=== PATIENT | male | born 1985 | race African-American/Black ===

== ENCOUNTER 2020-04-17 12:18 | Outpatient (CLI) | payer OTHER ==
[~2020-04-17] VITALS: Ht 188 cm; Wt 110.7 kg
[2020-04-17 14:54] VITALS: BP 123/68
[2020-04-17] MEDS ORDERED: MULTIVITAMINS1 EAC2 ORAL (14:54)
--- NOTE | 2020-04-17 17:30 | Consultation ---
DATE OF CONSULTATION: 04/17/2020 CONSULTING PHYSICIAN: Guillermo Montemayor MD. CHIEF COMPLAINT: Abdominal bloating, abdominal pain. HISTORY OF PRESENT ILLNESS: This is a 34-year-old male without any significant past medical history except for BPH and penile stenosis requiring urethral dilatation presented with complaint of abdominal pain, nonspecific, started on the left side, sometimes goes to the right side especially with bloating, gas, and some minimum constipation. Patient used to go to the bathroom twice a day, now going every other day. Also complained of 10 pounds of weight loss, but he says he changed his diet. He does not have much of appetite and his eating pattern has changed. He also has history of GERD, which is resolving, history of hemorrhoidal problems, which has resolved. PAST MEDICAL HISTORY: 1. History of BPH. 2. Urethral stricture requiring a urethral dilatation. 3. GERD. 4. Constipation. 5. Hemorrhoids. PAST SURGICAL HISTORY: Urethral dilatation. MEDICATIONS: Multivitamin. FAMILY HISTORY: Father had positive cancer. SOCIAL HISTORY: Patient drinks alcohol socially. Smokes occasionally. Denies any IV drug abuse. ALLERGIES: No known drug allergies. REVIEW OF SYSTEMS: A 10-point review of systems performed and pertinent positives in HPI. PHYSICAL EXAMINATION: VITAL SIGNS: Temperature 98.2, blood pressure 123/60, pulse 91, respirations 20. HEENT: Normocephalic, atraumatic. Sclerae anicteric. NECK: Supple. No evidence of obvious lymphadenopathy. CARDIOVASCULAR: Regular rate and rhythm. Plus S1-S2. LUNGS: Clear to auscultation bilaterally. ABDOMEN: Positive bowel sounds. Soft and nontender. No rebound. No guarding. No peritoneal sign. EXTREMITIES: No cyanosis. No clubbing. No edema. ASSESSMENT AND PLAN: This is a 34-year-old male with complaints of bloating, gas, constipation, suspicious for IBS versus SIBO. Plan to give the patient probiotics, Align 1 tablet p.o. daily. Patient was also told to try diet, try to stay anything from raw food. Try Align for 1 month and come back if his symptoms are not better. Meanwhile, patient was to take MiraLAX as needed for constipation. Guillermomallika Montemayor M.D. DR: MELANIE JOB#: [id number] CC:
== END 2020-04-17 14:18 | disposition home or self-care (01) ==
LOC: PAN 12:18
DX: R14.0 Abdominal distension (gaseous) (principal); R10.9 Unspecified abdominal pain; K21.9 Gastro-esophageal reflux disease without esophagitis; N40.0 Benign prostatic hyperplasia without lower urinary tract symptoms; N35.919 Unspecified urethral stricture, male, unspecified site
CPT/HCPCS: G0463

== ENCOUNTER 2020-05-01 13:38 | Outpatient (CLI) | payer OTHER ==
[~2020-05-01 13:38] MED LIST: MULTIVITAMINS1 EAC2 ORAL
--- NOTE | 2020-05-01 19:30 | Progress Note ---
DATE: 05/01/2020 CHIEF COMPLAINT: Rectal bleeding. SUBJECTIVE: Patient is having rectal bleeding, abdominal pain going on for about 3 weeks. PHYSICAL EXAMINATION: VITAL SIGNS: Stable. HEENT: Normocephalic, atraumatic. Sclerae anicteric. NECK: Supple. No evidence of obvious lymphadenopathy. CARDIOVASCULAR: Regular rate and rhythm. Plus S1 and S2. LUNGS: Clear to auscultation bilaterally. ABDOMEN: Positive bowel sounds. Soft, nontender. No rebound. No guarding. No peritoneal sign. EXTREMITIES: No cyanosis, no clubbing, no edema. ASSESSMENT AND PLAN: This is a 34-year-old male, known to me from last admission. He had abdominal pain on last time. We contributed that to may be IBS or constipation. We recommend to treat constipation. Patient apparently was doing better with Align 1 tablet daily and taking MiraLAX, but still having rectal bleeding for last 3 weeks and he is very concerned, has been seen by his primary care physician, and was recommend to have a colonoscopy. Patient was given the instruction for colonoscopy. Risks and benefits of procedure were explained to him, pending authorization for colonoscopy. Guillermo Montemayor M.D. DR: MELANIE JOB#: [id number] CC:
== END 2020-05-01 15:38 | disposition home or self-care (01) ==
LOC: PAN 13:38
DX: K62.5 Hemorrhage of anus and rectum (principal); R10.9 Unspecified abdominal pain
CPT/HCPCS: 99212

== ENCOUNTER 2020-05-06 10:03 | Emergency (ER) | payer OTHER ==
[~2020-05-06] VITALS: Ht 188 cm; Wt 99.8 kg
--- NOTE | 2020-05-06 10:10 | NUR ---
ED Nurse Note: Pt was brought in by ambulance from home d/t chest pain started 12 hours ago. Pt is AOx4, calm and cooperative. Per pt, pain feels like 5/10 scale starting on the RT side, pt also complains that he has been occassionaly coughing for days now. Placed on bed and gown; hooked to orthophoto tech/draftsman, satting at 99% on RA, afebrile on triage. Isolation precations initiated.
--- NOTE | 2020-05-06 10:22 | NUR ---
ED Nurse Note: ERMD at bedside.
[2020-05-06 10:24] VITALS: BP 138/80
--- NOTE | 2020-05-06 10:33 | Emergency Room Report ---
History of Present Illness General Chief Complaint: Chest Pain Source: Patient, EMS Present Illness HPI Disclaimer: Please note that this report is being documented using DRAGON technology. This can lead to erroneous entry secondary to incorrect interpretation by the dictating instrument. HPI: 34-year-old male presents for evaluation of chest pain. Patient states last night before going to bed he felt some tightness on the left side of his chest and a sharp stinging sensation with deep inhalation. This morning that sensation went to the middle and to the left side of his chest. Does not radiate to the arm, neck or back. Reports a baseline cough that is unchanged which he attributes to allergies. He is being treated for acid reflux by his international marketing executive and states there is some component of reflux but the pain in the right upper chest is somewhat different. No pain with torso movements. Denies any recent trauma or heavy lifting. Denies shortness of breath, palpitations, lightheadedness, vomiting, diarrhea, fever, chills, nasal congestion, sore throat. No known sick contacts. PMH: GERD PSH: Denies Allergies: Seasonal allergies Social Hx: Occasional THC use Allergies: Coded Allergies: No Known Allergies (Unverified , 04/17/20) COVID-19 Screening Contact w/high risk pt: No Recent Travel to affected area: No Experienced COVID-19 symptoms?: No COVID-19 Testing performed FRENCH POLISHER: No Nursing Documentation-PMH Past Medical History: No History, Except For Hx Cardiac Problems: No Hx Cancer: No Hx Gastrointestinal Problems: Yes History Of Psychiatric Problem: No - enlarge prostate Hx Neurological Problems: No Review of Systems All Other Systems: negative except mentioned in HPI Physical Exam Vital Signs Date Time Temp Pulse Resp B/P (MAP) Pulse Ox O2 Delivery O2 Flow Rate FiO2 05/06/20 10:00 98.8 83 16 138/80 (99) 99 Room Air General: Awake and alert, no acute distress HEENT: NC/AT. EOMI. Chest wall: No reproducible tenderness, no crepitus, no deformity cardiovascular: RRR. S1 and S2 normal. No murmur appreciated Resp: Normal work of breathing. No cough, wheezing or crackles appreciated Abdomen: Abdomen is soft, nondistended. Nontender Skin: Intact. No abrasions, laceration or rash over the exposed skin MSK: Normal tone and bulk. Moving all extremities. No obvious deformity. Neuro: Awake and alert. Mentating appropriately. Medical Decision Making Diagnostic Impression: Primary Impression: Chest pain Additional Impression: Suspected 2019 novel coronavirus infection ER Course 34-year-old otherwise healthy male presents for evaluation of chest pain. Differential includes was not limited to arrhythmia, ACS, musculoskeletal chest wall pain, pleurisy, pericarditis, myocarditis pneumonia, pneumothorax, PE, viral syndrome, COVID-19 infection, URI, GERD to name a few. He is EKG on arrival shows sinus rhythm without ischemic changes and does not show signs of pericarditis at this time. He is well-appearing with stable vital signs. Patient was kept in respiratory isolation. Low clinical suspicion for PE at this time; patient is PERC negative. Chest x-ray unremarkable and troponin is negative. Other labs are within normal limits. Believes likely pleurisy from an early viral infection. Patient was given Toradol and will be discharged with instructions to self isolate and sent to outpatient COVID-19 testing. We discussed reasons to return to the emergency department and need to follow-up with his PMD. He understands and agrees with treatment plan was discharged home. Laboratory Tests Test 05/06/20 10:18 White Blood Count 6.0 K/UL (4.8-10.8) Red Blood Count 4.92 M/UL (4.70-6.10) Hemoglobin 15.5 G/DL (14.2-18.0) Hematocrit 47.0 % (42.0-52.0) Mean Corpuscular Volume 96 FL (80-99) Mean Corpuscular Hemoglobin 31.4 PG (27.0-31.0) H Mean Corpuscular Hemoglobin Concent 32.9 G/DL (32.0-36.0) Red Cell Distribution Width 12.2 % (11.6-14.8) Platelet Count 245 K/UL (150-450) Mean Platelet Volume 9.3 FL (6.5-10.1) Neutrophils (%) (Auto) 54.1 % (45.0-75.0) Lymphocytes (%) (Auto) 30.1 % (20.0-45.0) Monocytes (%) (Auto) 10.4 % (1.0-10.0) H Eosinophils (%) (Auto) 3.9 % (0.0-3.0) H Basophils (%) (Auto) 1.5 % (0.0-2.0) Sodium Level 140 MMOL/L (136-145) Potassium Level 4.3 MMOL/L (3.5-5.1) Chloride Level 105 MMOL/L (98-107) Carbon Dioxide Level 28 MMOL/L (21-32) Anion Gap 7 mmol/L (5-15) Blood Urea Nitrogen 9 mg/dL (7-18) Creatinine 1.1 MG/DL (0.55-1.30) Estimated Glomerular Filtration Rate > 60 mL/min (>60) Glucose Level 98 MG/DL (74-106) Calcium Level 8.7 MG/DL (8.5-10.1) Total Bilirubin 0.6 MG/DL (0.2-1.0) Aspartate Amino Transferase (AST) 17 U/L (15-37) Alanine Aminotransferase (ALT) 19 U/L (12-78) Alkaline Phosphatase 62 U/L (46-116) Troponin I 0.000 ng/mL (0.000-0.056) Total Protein 7.8 G/DL (6.4-8.2) Albumin 4.1 G/DL (3.4-5.0) Globulin 3.7 g/dL Albumin/Globulin Ratio 1.1 (1.0-2.7) EKG Diagnostic Results EKG Time: 10:05 Rate: normal Rhythm: NSR ST Segments: no acute changes Other Impression Sinus rhythm, normal axis, normal intervals, no ST segment changes, no T wave abnormalities. No ST elevation identified, no AK depression identified Rhythm Strip Diag. Results Rhythm Strip Time: 10:05 EP Interpretation: yes Rate: 80s Rhythm: NSR, no PVC's, no ectopy Chest X-Ray Diagnostic Results Chest X-Ray Diagnostic Results : Chest X-Ray Ordered: Yes # of Views/Limited/Complete: 1 View Indication: Chest Pain EP Interpretation: Yes Interpretation: no consolidation, no effusion, no pneumothorax, no acute cardiopulmonary disease Impression: No acute disease Electronically Signed by: Electronically signed by Dr. Chapincito Jimenez Last Vital Signs Date Time Temp Pulse Resp B/P (MAP) Pulse Ox O2 Delivery O2 Flow Rate FiO2 05/06/20 10:24 83 16 Room Air 05/06/20 10:24 98.8 138/80 99 Disposition: HOME, SELF-CARE Condition: Stable Scripts Ibuprofen* (MOTRIN*) 600 Mg Tablet 600 MG ORAL Q8H PRN for FOR PAIN, #30 TAB 0 Refills Prov: Chapincito Jimenez MD 05/06/20 Chapincito Jimenez MD May 06, 2020 10:33
[2020-05-06 10:45] LABS: ANION GAP 7 mmol/L (5-15); BLOOD UREA NITROGEN 9 mg/dL (7-18); CALCIUM 8.7 MG/DL (8.5-10.1); CARBON DIOXIDE 28 MMOL/L (21-32); CHLORIDE 105 MMOL/L (98-107); CREATININE 1.1 MG/DL (0.55-1.30); POTASSIUM 4.3 MMOL/L (3.5-5.1); SODIUM 140 MMOL/L (136-145)
--- NOTE | 2020-05-06 10:46 | NUR ---
ED Nurse Note: X-ray tech at bedside.
[2020-05-06 10:49] LABS: ALANINE AMINOTRANSFERASE 19 U/L (12-78); ALBUMIN 4.1 G/DL (3.4-5.0); ALBUMIN/GLOBULIN RATIO 1.1 (1.0-2.7); ALKALINE PHOSPHATASE 62 U/L (46-116); ASPARTATE AMINO TRANSFERASE 17 U/L (15-37); BILIRUBIN,TOTAL 0.6 MG/DL (0.2-1.0)
[2020-05-06 10:51] LABS: BASOPHILS % (AUTO) 1.5 % (0.0-2.0); EOSINOPHILS % (AUTO) 3.9 % (0.0-3.0); HEMOGLOBIN 15.5 G/DL (14.2-18.0); LYMPHOCYTES % (AUTO) 30.1 % (20.0-45.0); MEAN CORPUSCULAR VOLUME 96 FL (80-99); MONOCYTES % (AUTO) 10.4 % (1.0-10.0); NEUTROPHILS % (AUTO) 54.1 % (45.0-75.0); PLATELET COUNT 245 K/UL (150-450); RED BLOOD COUNT 4.92 M/UL (4.70-6.10); RED CELL DISTRIBUTION WIDTH 12.2 % (11.6-14.8)
[2020-05-06] MEDS ORDERED: Ketorolac 30mg Inj ONE (10:55)
[2020-05-06] MEDS ORDERED: Ketorolac 30mg Inj IV ONE (11:00)
[2020-05-06] MEDS ORDERED: IBUPROFEN600 M1 ORAL (11:03)
--- NOTE | 2020-05-06 11:33 | NUR ---
ER DISCHARGE NOTE: Pt is cleared to be discharged per ERMD, pt is aox4, on room air, with stable vital signs. pt was given dc and prescription instructions, pt was able to verbalize understanding, pt id band and iv site removed without complications. pt is able to ambulate with steady gait. pt took all belongings.
--- NOTE | 2020-05-06 11:34 | Diagnostic Imaging Report ---
EXAM: XR Chest, 1 View CLINICAL HISTORY: CP TECHNIQUE: Frontal view of the chest. COMPARISON: None FINDINGS: Hardware: None. Lungs/pleura: Normal. No focal consolidation. No pleural effusion or pneumothorax. Heart/mediastinum: Normal. No cardiomegaly. Soft tissues: Unremarkable. Bones: No acute fracture. Upper abdomen: Normal. IMPRESSION: No acute disease identified.
== END 2020-05-06 11:33 | disposition home or self-care (01) ==
LOC: EDBD 10:03 → EMR 10:30
DX: R07.9 Chest pain, unspecified (principal); K21.9 Gastro-esophageal reflux disease without esophagitis
CPT/HCPCS: 36415; 71045; 80053; 84484; 85025; 93005; 96374; 99284; J1885

== ENCOUNTER 2020-07-13 13:30 | Outpatient (CLI) | payer OTHER ==
[~2020-07-13 13:30] MED LIST changes: +IBUPROFEN600 M1 ORAL
[2020-07-18 10:19] VITALS: BP 109/68
--- NOTE | 2020-07-19 13:58 | General Progress Note ---
Assessment/Plan Assessment/Plan: abd pain constipation diarrhea rectal bleed patient refused colonoscopy eleavil 25 anusol HC RTC prn Subjective ROS Limited/Unobtainable: Yes Allergies: Coded Allergies: No Known Allergies (Unverified , 04/17/20) Objective General Appearance: alert EENT: normal ENT inspection Neck: supple Cardiovascular: normal rate Respiratory/Chest: decreased breath sounds Abdomen: normal bowel sounds, non tender, soft Extremities: non-tender Guillermo Montemayor MD Jul 19, 2020 13:58
== END 2020-07-13 15:30 | disposition home or self-care (01) ==
LOC: PAN 13:30
DX: R10.9 Unspecified abdominal pain (principal); K59.00 Constipation, unspecified; R19.7 Diarrhea, unspecified; K62.5 Hemorrhage of anus and rectum
CPT/HCPCS: 99212

== ENCOUNTER 2020-09-05 09:16 | Outpatient (CLI) | payer OTHER ==
--- NOTE | 2020-09-05 11:25 | General Progress Note ---
Subjective ROS Limited/Unobtainable: Yes Allergies: Coded Allergies: No Known Allergies (Unverified , 04/17/20) Objective General Appearance: alert EENT: normal ENT inspection Neck: supple Cardiovascular: normal rate Respiratory/Chest: decreased breath sounds Abdomen: normal bowel sounds, non tender, soft Extremities: non-tender Assessment/Plan Assessment/Plan: Assessment/Plan Assessment/Plan: abd pain constipation diarrhea rectal bleed patient agreed to colonoscopy pending authorization Guillermo Montemayor MD Sep 05, 2020 11:25
== END 2020-09-05 11:16 | disposition home or self-care (01) ==
LOC: PAN 09:16
DX: R10.9 Unspecified abdominal pain (principal); K59.00 Constipation, unspecified; R19.7 Diarrhea, unspecified; K62.5 Hemorrhage of anus and rectum
CPT/HCPCS: 99212

== ENCOUNTER → 2020-09-28 | Outpatient (CLI) | payer OTHER ==
[2020-09-28 13:34] VITALS: BP 126/66
--- NOTE | 2020-10-03 08:16 | General Progress Note ---
Subjective ROS Limited/Unobtainable: Yes Allergies: Coded Allergies: No Known Allergies (Unverified , 04/17/20) Objective General Appearance: alert EENT: normal ENT inspection Neck: supple Cardiovascular: normal rate Respiratory/Chest: lungs clear Abdomen: normal bowel sounds, non tender, soft Extremities: non-tender Assessment/Plan Assessment/Plan: s/p Colonoscopy internal and external hemorrhoids RTC prn Guillermo Montemayor MD Oct 03, 2020 08:15
== END | disposition home or self-care (01) ==
LOC: PAN 13:06
DX: K64.8 Other hemorrhoids (principal); K64.4 Residual hemorrhoidal skin tags